=== PATIENT | male | born 1990 | race American Indian/Alaskan Native ===

== ENCOUNTER 2020-09-15 15:05 | Emergency (ER) | payer SELFPAY ==
[2020-09-15 15:11] VITALS: BP 159/111
--- NOTE | 2020-09-15 16:19 | Emergency Department Report ---
ED ENT HPI - General Chief complaint: Dental/Oral Stated complaint: TOOTHACHE Time Seen by Provider: 09/15/20 16:07 Source: patient Mode of arrival: Ambulatory Limitations: No Limitations - History of Present Illness Initial comments: 30-year-old male presents complaints of dental pain to right lower jaw. Patient states that his symptoms started about 3 days ago. Patient states that his pain has been getting worse and he started to have some swelling to his right lower jaw. He does not currently have a dentist. He reports no difficulty controllin g see secretions or difficulty opening his mouth. MD complaint: tooth pain -: days(s) (this past tuesday ) - Related Data Previous Rx's Medication Instructions Recorded Last Taken Type Amoxicillin [Trimox CAP] 500 mg PO Q8H #30 capsule 09/15/20 Unknown Rx Ibuprofen [Motrin] 800 mg PO Q8HR PRN #30 tablet 09/15/20 Unknown Rx Allergies Allergy/AdvReac Type Severity Reaction Status Date / Time No Known Allergies Allergy Unverified 09/15/20 15:09 ED Dental HPI - General Chief complaint: Dental/Oral Stated complaint: TOOTHACHE Time Seen by Provider: 09/15/20 16:07 Source: patient Mode of arrival: Ambulatory Limitations: No Limitations - Related Data Previous Rx's Medication Instructions Recorded Last Taken Type Amoxicillin [Trimox CAP] 500 mg PO Q8H #30 capsule 09/15/20 Unknown Rx Ibuprofen [Motrin] 800 mg PO Q8HR PRN #30 tablet 09/15/20 Unknown Rx Allergies Allergy/AdvReac Type Severity Reaction Status Date / Time No Known Allergies Allergy Unverified 09/15/20 15:09 ED Review of Systems ROS: Stated complaint: TOOTHACHE Other details as noted in HPI Comment: All other systems reviewed and negative ENT: dental pain. denies: ear pain, throat pain, congestion Respiratory: no symptoms reported Cardiovascular: denies: chest pain, palpitations Gastrointestinal: denies: abdominal pain, nausea, diarrhea Genitourinary: denies: urgency, dysuria Skin: denies: rash, lesions Neurological: denies: headache, weakness, paresthesias Psychiatric: denies: anxiety, depression Hematological/Lymphatic: denies: easy bleeding, easy bruising ED Past Medical Hx - Past Medical History Previous Medical History?: No - Surgical History Past Surgical History?: No - Social History Smoking Status: Never Smoker Substance Use Type: None - Medications Home Medications: Home Medications Medication Instructions Recorded Confirmed Last Taken Type Amoxicillin [Trimox CAP] 500 mg PO Q8H #30 capsule 09/15/20 Unknown Rx Ibuprofen [Motrin] 800 mg PO Q8HR PRN #30 tablet 09/15/20 Unknown Rx ED Physical Exam - General Limitations: No Limitations General appearance: alert, in no apparent distress - Head Head exam: Present: atraumatic, normocephalic, normal inspection - Eye Eye exam: Present: normal appearance, PERRL, EOMI Pupils: Present: normal accommodation - ENT ENT exam: Present: normal exam, mucous membranes moist - Expanded ENT Exam Expanded 1 - Fractured (Severe dental decay), Dental Tenderness, Other (Mild gum swelling no apparent fluctuance noted) - Neck Neck exam: Present: normal inspection, full ROM - Respiratory Respiratory exam: Absent: respiratory distress - Cardiovascular Cardiovascular Exam: Present: regular rate - Neurological Exam Neurological exam: Present: alert, oriented X3, CN II-XII intact - Psychiatric Psychiatric exam: Present: normal affect, normal mood ED Course Vital Signs 09/15/20 15:09 Temperature 99.0 F Pulse Rate 86 Respiratory 20 Rate Blood Pressure 159/111 O2 Sat by Pulse 96 Oximetry Critical care attestation.: If time is entered above; I have spent that time in minutes in the direct care of this critically ill patient, excluding procedure time. ED Disposition Clinical Impression: Dental abscess Disposition: TO HOME OR SELFCARE Is pt being admited?: No Does the pt Need Aspirin: No Condition: Stable Instructions: Dental Abscess, [id number] Additional Instructions: Take the antibiotics as prescribed. Take the Motrin as needed for pain. Follow-up with one of the dentist listed on the list given to you in the ER. Return to the ER if your symptoms changes or worsens in any way. Prescriptions: Ibuprofen [Motrin] 800 mg PO Q8HR PRN #30 tablet PRN Reason: pain Amoxicillin [Trimox CAP] 500 mg PO Q8H #30 capsule Time of Disposition: 16:19
== END 2020-09-15 16:22 | disposition home or self-care (01) ==
LOC: ED 15:05
DX: K04.7 Periapical abscess without sinus (principal); Z79.899 Other long term (current) drug therapy
CPT/HCPCS: 99282

== ENCOUNTER 2020-12-18 16:07 | Emergency (ER) | payer SELFPAY ==
[2020-12-18 16:29] VITALS: BP 147/89
--- NOTE | 2020-12-18 17:19 | Emergency Department Report ---
- General Chief Complaint: Upper Respiratory Infection Stated Complaint: CHEST PAIN/RUNNY NOSE Source: patient Mode of arrival: Ambulatory Limitations: No Limitations - History of Present Illness Initial Comments: Patient is a 30-year-old -[place] male with no past medical history presents to the ED with complaint of acute onset persistent nasal and sinus congestion, frontal sinus pressure, sore throat, persistent dry cough with occasional production of white phlegm, generalized weakness and headache for the last 2 days. Patient states that no one else at home is had similar symptoms. Patient states that he has been taking [id number] medications with no relief. Patient denies dizziness, syncope, chest pain, shortness of breath, abdominal pain, nausea, vomiting, change in vision, diarrhea, fever and chills. MD Complaint: cough, sore throat, rhinorrhea, nasal congestion, sinus pain -: Sudden, days(s) (2) Severity scale (0 -10): 4 Quality: dull, aching Consistency: constant Improves With: nothing Worsens With: nothing Associated Symptoms: denies other symptoms, myalgias, rhinorrhea, nasal congestion, cough. denies: fever, chills, diaphoresis, headache, sore throat, stiff neck, chest pain, shortness of breath, abdominal pain, nausea, vomiting, diarrhea, dysuria, rash, confusion, right sweats, weight loss, epistaxis, hoarseness, ear pain Treatments Prior to Arrival: "cold medicine" - Related Data Previous Rx's Medication Instructions Recorded Last Taken Type Amoxicillin [Trimox CAP] 500 mg PO Q8H #30 capsule 09/15/20 Unknown Rx Ibuprofen [Motrin] 800 mg PO Q8HR PRN #30 tablet 09/15/20 Unknown Rx Azithromycin [Zithromax Z-TORY] 250 mg PO DAILY #6 tablet 12/18/20 Unknown Rx Cetirizine HCl [Zyrtec 10mg tab] 10 mg PO DAILY #30 tablet 12/18/20 Unknown Rx Ibuprofen [Motrin] 600 mg PO Q8H PRN #20 tablet 12/18/20 Unknown Rx predniSONE [Deltasone] 40 mg PO QDAY #10 tab 12/18/20 Unknown Rx Allergies Allergy/AdvReac Type Severity Reaction Status Date / Time No Known Allergies Allergy Verified 12/18/20 16:23 ED Review of Systems ROS: Stated complaint: CHEST PAIN/RUNNY NOSE Other details as noted in HPI Constitutional: chills, malaise. denies: fever Eyes: denies: eye pain, eye discharge, vision change ENT: throat pain, congestion, other (Frontal sinus pressure). denies: ear pain Respiratory: cough. denies: shortness of breath, wheezing Cardiovascular: denies: chest pain, palpitations Endocrine: no symptoms reported Gastrointestinal: denies: abdominal pain, nausea, vomiting, diarrhea Genitourinary: denies: urgency, dysuria Musculoskeletal: denies: back pain, joint swelling, arthralgia Skin: denies: rash, lesions Neurological: headache. denies: weakness, paresthesias Psychiatric: denies: anxiety, depression Hematological/Lymphatic: denies: easy bleeding, easy bruising ED Past Medical Hx - Past Medical History Previous Medical History?: No - Surgical History Past Surgical History?: No - Social History Smoking Status: Unknown if ever smoked - Medications Home Medications: Home Medications Medication Instructions Recorded Confirmed Last Taken Type Amoxicillin [Trimox CAP] 500 mg PO Q8H #30 capsule 09/15/20 Unknown Rx Ibuprofen [Motrin] 800 mg PO Q8HR PRN #30 tablet 09/15/20 Unknown Rx Azithromycin [Zithromax Z-TORY] 250 mg PO DAILY #6 tablet 12/18/20 Unknown Rx Cetirizine HCl [Zyrtec 10mg tab] 10 mg PO DAILY #30 tablet 12/18/20 Unknown Rx Ibuprofen [Motrin] 600 mg PO Q8H PRN #20 tablet 12/18/20 Unknown Rx predniSONE [Deltasone] 40 mg PO QDAY #10 tab 12/18/20 Unknown Rx ED Physical Exam - General Limitations: No Limitations General appearance: alert, in no apparent distress - Head Head exam: Present: atraumatic, normocephalic, normal inspection - Eye Eye exam: Present: normal appearance, PERRL, EOMI Pupils: Present: normal accommodation - ENT ENT exam: Present: normal orophraynx, mucous membranes moist, TM's normal bilaterally, normal external ear exam, other (Grossly congested nasal passages) - Neck Neck exam: Present: normal inspection, full ROM - Respiratory Respiratory exam: Present: normal lung sounds bilaterally. Absent: respiratory distress, wheezes, rales, rhonchi, chest wall tenderness, accessory muscle use, decreased breath sounds, prolonged expiratory - Cardiovascular Cardiovascular Exam: Present: normal rhythm, bradycardia, normal heart sounds. Absent: systolic murmur, diastolic murmur, rubs, gallop - GI/Abdominal GI/Abdominal exam: Present: soft, normal bowel sounds. Absent: tenderness, guarding, hyperactive bowel sounds, hypoactive bowel sounds - Extremities Exam Extremities exam: Present: normal inspection, full ROM, normal capillary refill - Back Exam Back exam: Present: normal inspection, full ROM. Absent: tenderness, CVA tenderness (R), CVA tenderness (L), muscle spasm, paraspinal tenderness, vertebral tenderness - Neurological Exam Neurological exam: Present: alert, oriented X3, CN II-XII intact, normal gait, reflexes normal - Psychiatric Psychiatric exam: Present: normal affect, normal mood - Skin Skin exam: Present: warm, dry, intact, normal color. Absent: rash ED Course Vital Signs 12/18/20 16:25 Temperature 99.0 F Pulse Rate 59 L Respiratory 20 Rate Blood Pressure 147/89 O2 Sat by Pulse 98 Oximetry ED Medical Decision Making - Medical Decision Making This is a 30-year-old -[place] male with no past medical history presents to the ED with complaint of acute onset persistent nasal and sinus congestion, frontal sinus pressure, sore throat, persistent dry cough with occasional production of white phlegm, generalized weakness and headache for the last 2 days. Patient states that no one else at home is had similar symptoms. Patient states that he has been taking [id number] medications with no relief. In the ED, patient is alert and oriented x3 and is not in any distress. Patient the history and physical exam findings, and the fact that the patient's vital signs are stable, patient was discharged home on medications for suspected upper respiratory infection versus bronchitis versus sinusitis. Patient was advised to follow-up with his primary care physician in 7 to 10 days for reevaluation or return to the ED immediately if symptoms get worse. - Differential Diagnosis URI; Sinusitis; Bronchitis; Pharyngitis Critical care attestation.: If time is entered above; I have spent that time in minutes in the direct care of this critically ill patient, excluding procedure time. ED Disposition Clinical Impression: Acute upper respiratory infection Acute bronchitis Qualifiers: Bronchitis organism: other organism Qualified Code(s): J20.8 - Acute bronchitis due to other specified organisms Acute frontal sinusitis Qualifiers: Recurrence: not specified as recurrent Qualified Code(s): J01.10 - Acute frontal sinusitis, unspecified Disposition: DC- TO HOME OR SELFCARE Is pt being admited?: No Does the pt Need Aspirin: No Condition: Stable Instructions: Acute Bronchitis (ED), Sinusitis, Adult, [id number], Upper Respiratory Infection, Adult, [id number]-[id number], Cough, Adult, [id number], Acute Bronchitis, Adult, [id number] Additional Instructions: Take medication with food, drink plenty of fluids and follow-up with your primary care physician in 5 to 7 days for reevaluation. Return to the ED immediately if symptoms get worse. Prescriptions: predniSONE [Deltasone] 40 mg PO QDAY #10 tab Ibuprofen [Motrin] 600 mg PO Q8H PRN #20 tablet PRN Reason: Pain Azithromycin [Zithromax Z-TORY] 250 mg PO DAILY #6 tablet Cetirizine HCl [Zyrtec 10mg tab] 10 mg PO DAILY #30 tablet Referrals: [facility] [Provider Group] - 3-5 Days Forms: Work/School Release Form(ED) Time of Disposition: 17:16 Print Language: IRAQI
== END 2020-12-18 18:10 | disposition home or self-care (01) ==
LOC: ED 16:07
DX: J06.9 Acute upper respiratory infection, unspecified (principal); J01.10 Acute frontal sinusitis, unspecified; J20.8 Acute bronchitis due to other specified organisms; Z79.899 Other long term (current) drug therapy
CPT/HCPCS: 99282

== ENCOUNTER 2021-04-30 20:21 | Emergency (ER) | payer SELFPAY ==
[2021-04-30] MEDS ORDERED: traMADol 50 MG TAB PO ONE (20:46)
--- NOTE | 2021-04-30 20:51 | Emergency Department Report ---
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 That happened approximately 1 hour ago at work. Patient states a piece of glass was falling he attempted to catch it causing laceration to fingertip. Bleeding was controlled by direct pressure to self applied. Inside is up-to-date. There is no obvious deformity no foreign body sensation range of motion remains intact and no active bleeding at this time. States pain is 4/10 exacerbated by palpation and movement. Patient did report incident to aviation safety officer at work. - Related Data Previous Rx's Medication Instructions Recorded Last Taken Type Amoxicillin [Trimox CAP] 500 mg PO Q8H #30 capsule 09/15/20 Unknown Rx Ibuprofen [Motrin] 800 mg PO Q8HR PRN #30 tablet 09/15/20 Unknown Rx Azithromycin [Zithromax Z-TORY] 250 mg PO DAILY #6 tablet 12/18/20 Unknown Rx Cetirizine HCl [Zyrtec 10mg tab] 10 mg PO DAILY #30 tablet 12/18/20 Unknown Rx Ibuprofen [Motrin] 600 mg PO Q8H PRN #20 tablet 12/18/20 Unknown Rx predniSONE [Deltasone] 40 mg PO QDAY #10 tab 12/18/20 Unknown Rx traMADoL [Ultram] 50 mg PO Q8HR PRN #9 tablet 04/30/21 Unknown Rx Allergies Allergy/AdvReac Type Severity Reaction Status Date / Time No Known Allergies Allergy Verified 12/18/20 16:23 ED Review of Systems ROS: Stated complaint: RIGHT FINGER INJURY Other details as noted in HPI Constitutional: denies: chills, fever Eyes: denies: eye pain, eye discharge, vision change ENT: denies: ear pain, throat pain Respiratory: denies: cough, shortness of breath, wheezing Cardiovascular: denies: chest pain, palpitations Endocrine: no symptoms reported Gastrointestinal: denies: abdominal pain, nausea, diarrhea Genitourinary: denies: urgency, dysuria Musculoskeletal: denies: back pain, joint swelling, arthralgia Skin: other (Right index finger fingertip minor partial skin avulsion.) Neurological: denies: headache, weakness, paresthesias Psychiatric: denies: anxiety, depression Hematological/Lymphatic: denies: easy bleeding, easy bruising ED Past Medical Hx - Past Medical History Previous Medical History?: No - Surgical History Past Surgical History?: No - Social History Smoking Status: Unknown if ever smoked - Medications Home Medications: Home Medications Medication Instructions Recorded Confirmed Last Taken Type Amoxicillin [Trimox CAP] 500 mg PO Q8H #30 capsule 09/15/20 Unknown Rx Ibuprofen [Motrin] 800 mg PO Q8HR PRN #30 tablet 09/15/20 Unknown Rx Azithromycin [Zithromax Z-TORY] 250 mg PO DAILY #6 tablet 12/18/20 Unknown Rx Cetirizine HCl [Zyrtec 10mg tab] 10 mg PO DAILY #30 tablet 12/18/20 Unknown Rx Ibuprofen [Motrin] 600 mg PO Q8H PRN #20 tablet 12/18/20 Unknown Rx predniSONE [Deltasone] 40 mg PO QDAY #10 tab 12/18/20 Unknown Rx traMADoL [Ultram] 50 mg PO Q8HR PRN #9 tablet 04/30/21 Unknown Rx ED Physical Exam - General Limitations: No Limitations General appearance: alert, in no apparent distress - Head Head exam: Present: atraumatic, normocephalic - Eye Eye exam: Present: normal appearance, EOMI Pupils: Present: normal accommodation - ENT ENT exam: Present: mucous membranes moist - Neck Neck exam: Present: normal inspection, full ROM. Absent: tenderness - Respiratory Respiratory exam: Present: normal lung sounds bilaterally. Absent: respiratory distress - Cardiovascular Cardiovascular Exam: Present: regular rate, normal rhythm, normal heart sounds. Absent: systolic murmur, diastolic murmur, rubs, gallop - GI/Abdominal GI/Abdominal exam: Present: soft, normal bowel sounds. Absent: distended, tenderness, bruit, hernia - Rectal Rectal exam: Present: deferred - Extremities Exam Extremities exam: Present: normal inspection, full ROM - Expanded Upper Extremity Exam Right Hand Wrist exam: Present: full ROM, laceration (Right distal index fingertip minor skin avulsion. No nail involvement, no nerve tendon or muscle damage.) Neuro motor exam: Present: wrist extension intact, thumb opposition intact, thumb IP flexion intact, thumb adduction intact, fingers 2-5 abduction intact Neurosensory exam: Present: radial nerve intact - Back Exam Back exam: Present: normal inspection, full ROM. Absent: tenderness - Neurological Exam Neurological exam: Present: alert, oriented X3, CN II-XII intact, normal gait. Absent: motor sensory deficit - Psychiatric Psychiatric exam: Present: normal affect, normal mood - Skin Skin exam: Present: warm, dry, normal color, other (Last coloration as above). Absent: rash ED Course Vital Signs 04/30/21 20:25 Temperature 98.2 F Pulse Rate 87 Respiratory 14 Rate Blood Pressure 157/78 O2 Sat by Pulse 96 Oximetry - Laceration /Wound Repair Right Distal Palm Finger Wound Location: upper extremity (Right distal fingertip skin minor partial skin avulsion) Wound Length (cm): 1 Wound's Depth, Shape: superficial, flap Wound Explored: clean Irrigated w/ Saline (ccs): 10 Betadine Prep?: Yes Wound Debrided: None required Wound Repaired With: Dermabond Sterile Dressing Applied?: Yes (1) Progress: Site cleaned with Betadine solution, irrigated with 10 cc sterile saline, partial flap repaired with Dermabond and Steri-Strip x1. Patient given post wound care instructions. There is no bleeding, there is no nerve muscle or tendon damage. There is no nail involvement. Patient will follow with primary care doctor in 2 days for wound check. Return to ED should symptoms worsen. Patient verbalized patient verbalized agreement and understanding of same ED Medical Decision Making - Medical Decision Making Minor skin avulsion right index fingertip see procedure note for repair all bleeders controlled. No muscle tendon or nerve damage. Patient DC'd home in stable condition at this time. Tetanus is up-to-date DC'd with prescription for NSAID as needed pain. Follow-up with For wound check in 2 days. Follow-up with Workmen's Comp. physician as directed by employer. Patient verbalized agreement and understanding with discharge plan. Patient DC'd home in stable condition at this time. Critical care attestation.: If time is entered above; I have spent that time in minutes in the direct care of this critically ill patient, excluding procedure time. ED Disposition Clinical Impression: Avulsion of skin of finger Qualifiers: Encounter type: initial encounter Qualified Code(s): S61.209A - Unspecified open wound of unspecified finger without damage to nail, initial encounter Disposition: 01 HOME / SELF CARE / HOMELESS Is pt being admited?: No Does the pt Need Aspirin: No Condition: Stable Instructions: Sutures, Sharath, or Adhesive Wound Closure, [id number] Additional Instructions: Follow-up with your doctor in 2 days for wound check. Return to emergency should symptoms worsen. Use safety gloves and goggles as directed and per employer direction. Prescriptions: traMADoL [Ultram] 50 mg PO Q8HR PRN #9 tablet PRN Reason: Pain Referrals: ANAT PAULINO MD [Staff Physician] - 3-5 Days Forms: Work/School Release Form(ED) Time of Disposition: 20:56
[2021-04-30 21:47] VITALS: BP 157/79
== END 2021-04-30 21:24 | disposition home or self-care (01) ==
LOC: ED 20:21
DX: S61.210A Laceration without foreign body of right index finger without damage to nail, initial encounter (principal); W25.XXXA Contact with sharp glass, initial encounter; Y93.89 Activity, other specified; Y92.89 Other specified places as the place of occurrence of the external cause; Y99.8 Other external cause status
CPT/HCPCS: 99282